=== PATIENT | female | born 1980 | race African-American/Black ===

== ENCOUNTER 2020-11-12 22:00 | Emergency (ER) | payer OTHER ==
[~2020-11-12] VITALS: Ht 167.6 cm; Wt 86.3 kg
[2020-11-12 23:19] VITALS: BP 166/89
[2020-11-12] MEDS ORDERED: NAPR-514 PO (23:49)
--- NOTE | 2020-11-12 23:49 | ED.ADGEN ---
Past Medical History Past Medical History: Hypertension Past Surgical History: Other Additional Past Surgical Histo: D&C Smoking Status: Former Smoker Alcohol Use: None General Adult EDM: Chief Complaint: UPPER EXTREMITY PAIN HPI: HPI: Patient is a 40 year old AA female who presents emergency department with complaints of medial left elbow pain without any known injury for the last 2 weeks. Patient reports that the pain sends a shooting pain down the medial aspect of her left forearm and causes her 4th and 5th digits to feel numb at times. Pt denies any weakness, swelling, or erythema of the affected area. She reports that her medial elbow is tender to palpation. She denies any decreased ROM. She currently rates the pain a 6/10 on the pain scale. She denies any alleviating factors. Review of Systems: Review of Systems: Complete ROS is negative unless otherwise noted in HPI. Allergies: Allergies: Allergies Coded Allergies Type Severity Reaction Last Updated Verified No Known Drug Allergies 11/12/20 No Physical Exam: PE: See Above Constitutional: Well developed, well nourished, no acute distress, non-toxic appearance. [] HENT: Normocephalic, atraumatic, bilateral external ears normal, nose normal. [] Eyes: PERRLA, EOMI, conjunctiva normal, no discharge. [] Neck: Normal range of motion, no stridor. [] Cardiovascular:Heart rate regular rhythm Lungs & Thorax: Respirations even and unlabored, no retractions, no respiratory distress Skin: Warm, dry, no erythema, no rash. [] Extremities: Right elbow: Tenderness to palpation of the medial anterior aspect, no edema, no erythema, no crepitus, 2+ radial and brachial pulses, no obvious deformity no cyanosis, ROM intact Neurologic: Alert and oriented X 3, no focal deficits noted. [] Psychologic: Affect normal, judgement normal, mood normal. [] Current Patient Data: Vital Signs: Vital Signs Date Time Temp Pulse Resp B/P (MAP) Pulse Ox O2 Delivery O2 Flow Rate FiO2 11/12/20 23:19 97.1 97 18 166/89 (114) 100 Room Air 97.1 EKG: EKG: [] Heart Score: Risk Factors: Risk Factors: DM, Current or recent (<one month) smoker, HTN, HLP, family history of CAD, obesity. Risk Scores: Score 0 - 3: 2.5% MACE over next 6 weeks - Discharge Home Score 4 - 6: 20.3% MACE over next 6 weeks - Admit for Clinical Observation Score 7 - 10: 72.7% MACE over next 6 weeks - Early Invasive Strategies Radiology/Procedures: Radiology/Procedures: PROCEDURE: ELBOW LEFT 3V Study: XR ELBOW COMPLETE_LEFT 3+VIEWS Indication: Elbow pain. No known injury. Comparison: None. Findings: Alignment is anatomic. No acute fracture. No elbow joint effusion. Tiny enthesophyte formation at the triceps insertion. No significant arthrosis. Impression: No radiographic abnormality to account for the patient's symptoms. [] Course & Med Decision Making: Course & Med Decision Making Pertinent Labs and Imaging studies reviewed. (See chart for details) [] Dragon Disclaimer: Dragon Disclaimer: This electronic medical record was generated, in whole or in part, using a voice recognition dictation system. Departure Departure Impression: Primary Impression: Cubital tunnel syndrome on left Disposition: 01 DC HOME SELF CARE/HOMELESS Condition: STABLE Referrals: Roberth SONG MD (PCP) RODRI RUCKER II, MD Patient Instructions: Cubital Tunnel Syndrome-SportsMed Additional Instructions: Fill the prescription and take as directed. Purchase an elbow support as discussed in the ER. Activity as tolerated. Follow up with Dr. Rucker if symptoms persist. Return to the ER if symptoms worsen or fever develops. Thank you for choosing [facility] today! We wish you a speedy recovery! Scripts Naproxen (NAPROXEN) 500 Mg Tablet 1 TAB PO BID PRN for PAIN for 10 Days, #20 TAB 0 Refills Prov: POLI CLAYTON APRN 11/12/20 POLI CLAYTON APRN Nov 12, 2020 23:49
--- NOTE | 2020-11-13 00:02 | RAD ---
Study: XR ELBOW COMPLETE_LEFT 3+VIEWS Indication: Elbow pain. No known injury. Comparison: None. Findings: Alignment is anatomic. No acute fracture. No elbow joint effusion. Tiny enthesophyte formation at the triceps insertion. No significant arthrosis. Impression: No radiographic abnormality to account for the patient's symptoms. Electronically signed by: CHANELLE CHAMPAGNE MD (11/12/2020 11:59 PM) [facility] [place]
== END 2020-11-13 00:19 | disposition home or self-care (01) ==
LOC: ER 22:00
DX: G56.22 Lesion of ulnar nerve, left upper limb (principal); M25.522 Pain in left elbow; I10 Essential (primary) hypertension; Z87.891 Personal history of nicotine dependence; Z98.890 Other specified postprocedural states
CPT/HCPCS: 73080; 99283